=== PATIENT | male | born 1950 | race Caucasian/White ===

== ENCOUNTER 2025-07-07 13:20 | Emergency (ER) | payer MEDICARE, SELFPAY ==
[2025-07-07] VITALS (15 sets, daily range): BP systolic 111–171; BP diastolic 60–122; PULSE 78–88; BMI 38.5
[2025-07-07 13:41] LABS: Hematocrit 36.6 % (39.0-52.0); Hemoglobin 12.1 g/dL (13.0-18.0); Mean Corp Hgb Conc. 33.1 g/dL (33.0-37.0); Mean Corpuscular Volume 94.3 fL (80.0-94.0); Nucleated Red Blood Cells % 0 % (-); Platelet Count 301 10^3/uL (130-400); Red Cell Dist. Width 13.7 % (11.5-14.5)
[2025-07-07 13:58] LABS: ALT (SGPT) 21 U/L (0-50); AST (SGOT) 21 U/L (17-59); Albumin 4.7 g/dl (3.5-5.0); Alkaline Phosphatase 46 U/L (38-126); Blood Urea Nitrogen 28 mg/dl (9-20); Calcium 9.8 mg/dl (8.4-10.2); Carbon Dioxide 24 mmol/L (22-30); Chloride 106 mmol/L (98-107); Glucose 124 mg/dl (70-99); Lipase 76 U/L (23-300); Potassium 4.5 mmol/L (3.5-5.1); Sodium 138 mmol/L (135-145); Total Protein 8.3 g/dl (6.3-8.2); eGFR > 60.00
[2025-07-07 14:09] LABS: Troponin I < 0.012 ng/ml
--- NOTE | 2025-07-07 19:02 | ED.GENMED ---
History of Present Illness
General
Chief Complaint: Dizziness
Source: patient
Exam Limitations: none
Time Seen by Provider: 07/07/25 18:44
Nursing documentation reviewed up to this point in time: agreed with
History of Present Illness
History of Present Illness:
Patient presents to ED secondary to intermittent dizziness, especially when standing up or walking over the past 3 weeks. Patient was evaluated by his primary care physician 1 week ago and was given diagnosis of vertigo. Patient was given
instructions on exercise therapy at home, which has not helped. Denies headache. Denies blurry vision. Denies difficulty with speech. Denies loss of sensation or weakness. Denies recent change in medications or diet. Denies recent illness.
Denies recent travel. Denies recent change in diet. Denies recent weight changes. Patient does report that he probably does not drink enough water during the day.
Past History
Past History
ED Past Medical History: HTN, Hypercholesterolemia and NIDDM
ED Past Surgical History: Orthopedic
Social History
Tobacco: Non-smoker
Alcohol: None
Drug: None
Personal:
Living: with family
Employment: Retired
Family History
Family History: Other (Noncontributory)
Review of Systems
Review of Systems
Allergies reviewed?: Yes
All Other Systems: ROS reviewed and negative except as documented in HPI and ROS
Constitutional: Reports no symptoms
Respiratory: Reports no symptoms; Denies trouble breathing
Cardiac: Reports no symptoms; Denies chest pain
ABD/GI: Reports no symptoms; Denies vomiting
Musculoskeletal: Reports no symptoms
Skin: Reports no symptoms
Neurological: Reports dizzy; Denies headache or weakness
Phy Exam
Physical Exam
Physical Exam:
Physical Exam
General: no apparent distress, not acutely ill. afebrile. overweight
Head: nc/at. eommi
Neck: supple. normal range of motion.
Heart: s1/s2 regular rate and rhythm
Lungs: no acute respiratory distress. clear bilaterally
Abdomen: normal bowel sounds. not tender.
Neuro: alert and oriented x 3. no focal neurological deficits. normal speech
Skin: no rash
Psychiatric: well kept. interactive and cooperative
Extremities: no edema. no calf tenderness.
Course
Orders/Labs/Results
Orders:
Orders
07/07/25 13:26
Electrocardiogram (*1) Urgent
Reason for Study: Chest Pain
EKG- Treatment ONCE
07/07/25 13:34
Complete Blood Count/With Diff Urgent
Comprehensive Metabolic Panel Urgent
Lipase Urgent
Troponin I Urgent
07/07/25 19:02
CT Head W/o Iv Contrast Urgent
Comment:
Reason For Exam: dizziness
Orthostatic VS- Treatment ONCE
07/07/25 20:37
0.9% Sodium Chloride 1000 ml [Nss] 1,000 ml IV BOLUS
07/07/25 23:55
COVID-19 Antigen Urgent
Source: Nasal Swab
Abnormal Lab Results
07/07/25
13:34
RBC 3.88 L 10^6/uL
(4.70-6.10)
Hgb 12.1 L g/dL
(13.0-18.0)
Hct 36.6 L %
(39.0-52.0)
MCV 94.3 H fL
(80.0-94.0)
MCH 31.2 H pg
(27.0-31.0)
Abs Immat Gran (auto) 0.1 H 10^3/uL
(0-0.05)
Absolute Lymphs (auto) 4.1 H 10^3/uL
(1.2-3.4)
Absolute Monos (auto) 1.1 H 10^3/uL
(0.1-0.6)
Immature Gran % 0.6 H %
(0-0.5)
Monocytes % 10.9 H %
(1.7-9.3)
BUN 28 H mg/dl
(9-20)
Glucose 124 H mg/dl
(70-99)
Total Protein 8.3 H g/dl
(6.3-8.2)
07/07/25 13:34
07/07/25 13:34
Vital Signs
Initial and Last Documented VS:
Initial Vital Signs
Temp Pulse Resp BP Pulse Ox
98.0 F 92 18 171/97 97
07/07/25 13:24 07/07/25 13:24 07/07/25 13:24 07/07/25 13:24 07/07/25 13:24
Last Documented Vital Signs
Temp Pulse Resp BP Pulse Ox
98.0 F 78 12 128/73 100
07/07/25 13:24 07/07/25 22:29 07/07/25 22:29 07/08/25 00:03 07/08/25 00:03
MDM/Problems Addressed
MDM/Problems Addressed:
Orthostatic vital signs noted along with symptoms, i.e. recurrent dizziness when standing up. History exam consistent with likely mild dehydration, culprit for his presenting symptoms. Otherwise, patient is afebrile, hemodynamic stable, and
neurologically intact. Patient will be given IV fluids and reassess. If improved, patient will be discharged home with recommendation to follow-up with PCP as an outpatient
After IV hydration, orthostatic vital signs rechecked, within normal limits without any recurrent dizziness. Patient feels comfortable going home at this time, with recommendation to continue hydration along with PCP follow-up as an outpatient.
*Pulse Oximetry
SaO2: 97
Oxygen Mode of Delivery: Room air
Patient hypoxic: no
*EKG
EKG Intrepretation Date: 07/07/25
Heart Rate: 85
Rate: normal
Rhythm: sinus
[place]: normal axis
*Critical Care Note
Total Time (30-74mins, 75-104mins- exclusive of procedures): Not Applicable
ED Attending Note
-
Portions of this chart may have been created with voice recognition software.� Occasional wrong word or��sound alike� substitutions may have occurred due to the inherent limitations of voice recognition software.
Discharge Plan
Departure
Patient Disposition: Home (Routine Discharge)
Date of Disposition: 07/07/25
Time of Disposition: 22:34
Patient with high blood pressure during this ER visit?: Yes
Condition: Good
Discharge Problem:
Dizziness, Dehydration
Instructions: Dehydration in adults - ED discharge instructions, Dizziness
Prescriptions:
No Action
latanoprost 1 DROP drops
1 drp OPHTHALMIC DAILY
pioglitazone 15 MG tablet
15 mg PO DAILY
lisinopril-hydrochlorothiazide 1 EACH tablet
1 ea PO BID
aspirin 81 MG tablet,delayed release (DR/EC)
81 mg PO DAILY
simvastatin 40 MG tablet
40 mg PO DAILY
metformin 500 MG tablet extended release 24 hr
1,000 mg PO BID
dorzolamide (PF) 10 ML drops
10 ml OP BID
tamsulosin 0.4 MG capsule
0.4 mg PO HS Qty: 20 0RF
cephalexin 500 MG capsule
500 mg PO QID Qty: 30 0RF
Referrals:
Xiang Newby DO [Family Provider, Family Practice]
Activity Restrictions/Additional Instructions:
As discussed, please follow-up with your primary care physician for reevaluation. Please consider return to ED with worsening symptoms.
Interventions
Interventions:
*Risk Screen - Suicide Last Done: 07/07/25 13:24
*General Assessment Last Done: 07/07/25 18:24
*Neglect/Abuse Screening Last Done: 07/07/25 18:24
*ED- Fall Risk Assessment Last Done: 07/07/25 18:24
*ED COVID-19 Vaccine History Last Done: 07/07/25 18:24
*Nursing Disposition Last Done: 07/08/25 01:00
ED- Neurological Assessment Last Done: 07/07/25 18:24
ED- Cardiac Assessment Last Done: 07/08/25 01:00
ED Swallowing Screen Last Done: 07/08/25 01:00
Discharge Date and Time
Discharge Date/Time: 07/08/25 01:00
Print Language: COMORAN
[2025-07-07] MEDS: NSS 1000 IV (21:05)
[2025-07-08 00:03] VITALS: BP 128/73
[2025-07-08 00:26] LABS: COVID-19 Antigen Negative (Negative)
== END 2025-07-08 01:00 | disposition home or self-care (01) ==
LOC: EMR 13:20
PROVIDERS: Emergency Medicine; Physician Assistant; EMERGENCY PHYSICIAN Emergency Medicine; FAMILY PHYSICIAN Family Medicine
DX: R42 Dizziness and giddiness (principal); E86.0 Dehydration; I10 Essential (primary) hypertension; E78.00 Pure hypercholesterolemia, unspecified; E11.9 Type 2 diabetes mellitus without complications
CPT/HCPCS: 99284; 70450; 80053; 83690; 84484; 85025; 87811; 93005